=== PATIENT | female | born 1980 | race Caucasian/White ===

== ENCOUNTER 2018-02-06 06:00 | Inpatient (IN) | payer BC ==
[2018-02-05 16:40] LABS: ABS Basophils 0 10^3/ul (0-0.2); ABS Eosinophils 0.1 10^3/ul (0-0.6); ABS Lymphocytes 1.7 10^3/ul (1.0-4.8); ABS Monocytes 0.5 10^3/ul (0-0.8); ABS Neutrophils 6.6 10^3/ul (1.5-7.7); ABS Nucleated RBC 0 10^3/ul; Eosinophil % 1.2 % (0-6); Hematocrit 38 % (35-47); Hemoglobin 13.1 g/dl (12.0-16.0); Lymphocyte % 19.4 % (25-47); Mean Corpuscular HGB Conc 35 g/dl (31-36); Mean Corpuscular Hemoglobin 32 pg (27-31); Mean Corpuscular Volume 91 fL (80-97); Mean Platelet Volume 7.7 um3 (7.4-10.4); Nucleated Red Blood Cells % 0; Platelet Count 206 10^3/ul (150-450); Red Blood Count 4.15 10^6/ul (4.00-5.40); Red Cell Distribution Width 14 % (10.5-15)
[~2018-02-06 06:00] MED LIST: Buffered Lidocaine 0.9% SYRIN* 5 ML/SYR SYRINGE INTRADERM ONE; Metoclopramide IV* 5 MG/ML 2 ML VIAL IV SLOW PU ONE; Ondansetron SYRINGE* 4 MG/2 ML SYRINGE (from 40mg/20ml vial) IV ONE; Sodium Citrate/Citric Acid* 15 ML UDC PO ONE
--- OUTSIDE RECORDS SUMMARY | 2018-02-06 06:05 | XMS REPORT ---
:1980 External Reference #:[id number] Author Organization [facility] Address [address] [place] [id number] Phone [phone] Care Team Providers Name Role Phone Meron Olivo MD Primary Care Physician Unavailable Payers Type Date Identification Numbers Payment Provider Subscriber Commercial Policy Number: [id number] [facility] Nancie Hou PayID: [id number] [address] [address] [place] [address] Problems Date Description Provider Status Onset: 08/28/2017 Elderly primigravida Neda Bajwa CNM Active Family History Date Family Member(s) Problem(s) Comments Father Hypercholesterolemia Mother Hypercholesterolemia First Brother Anxiety Second Brother A&W Third Brother A&W Paternal Grandfather due to Alzheimer's Disease () Paternal Grandmother due to Old Age () Maternal Grandfather due to [place] () Maternal Grandfather due to Aneurysm () Maternal Grandmother A&W Social History Type Date Description Comments Education Highest Level Completed, Master's Degree Marital Status Lives With Pets None Occupation [place] [employer] Cigarette Use Former Cigarette Smoker Quit 2010 ETOH Use Alcohol Use Prior To 1-2 beers/week Recreational Drug Use Does Not Use Drugs Smoking Patient has never smoked Daily Caffeine Does not consume caffeine Seat Belt/Car Seat Always uses seat belt STD's No STD History Allergies, Adverse Reactions, Alerts Date Description Reaction Status Severity Comments 08/24/2017 NKDA active Medications Medication Date Status Form Strength Qnty SIG Indications Ordering Provider Vitamin Active Unknown Calcium 600 Active Unknown Iron Active Unknown Medications Administered in Office Medication Date Status Form Strength Qnty SIG Indications Ordering Provider PT SCRN Tbco Administered Injection Kimberlyn Id as Non User 018 MD Srinivas Immunizations CPT Code Status Date Vaccine Lot # [id number] Given 11/17/2017 Tetnus, Diptheria Toxoids And Acellular Pertussis, 9PD92 PT > 7Yrs Old Vital Signs Date Vital Result Comment 01/27/2018 BP Systolic 122 mmHg BP Diastolic 80 mmHg Body Temperature 97.8 F Heart Rate 80 /min Respiratory Rate 12 /min Height 67.5 inches 5'7.50" Weight 196.00 lb BMI (Body Mass Index) 30.2 kg/m2 Last Menstrual Period [id number] 1 Parity 0 08/24/2017 BP Systolic 116 mmHg BP Diastolic 78 mmHg Height 67.5 inches 5'7.50" Weight 176.00 lb BMI (Body Mass Index) 27.2 kg/m2 Last Menstrual Period 0349000 1 Parity 0 Results Test Date Test Result H/L Range Note Laboratory test 01/11/2018 Group B Strep SEE RESULT BELOW 1, 2 finding Culture Screen Laboratory test 11/17/2017 Glucose 1 HR Post 61 mg/dL Low 70-160 3 finding Prandial CBC With No Diff 11/17/2017 White Blood Count 10.7 10^3/uL 3.5-10.8 Red Blood Count 3.70 10^6/uL Low 4.0-5.4 Hemoglobin 11.5 g/dL Low 12.0-16.0 Hematocrit 34 % Low 35-47 Mean Corpuscular Volume 92 fL 80-97 Mean Corpuscular Hemoglobin 31 pg 27-31 Mean Corpuscular HGB Conc 34 g/dL 31-36 Red Cell Distribution Width 15 % 10.5-15 Platelet Count 259 10^3/uL 150-450 Mean Platelet Volume 6.8 um3 Low 7.4-10.4 Lead 09/23/2017 Lead 1.9 g/dL 0.0-4.9 4 Submitting Laboratory Phone [phone] Laboratory test finding 09/23/2017 Hemoglobin A1c 4.9 % 4.0-5.6 6 Rubella Screen Equivocal IU/mL Immune 7 Maternal Serum Afp 09/23/2017 ELPIDIO Interpretation SEE NOTE 8 Risk For NTD (Osb) 1:4100 Afp,Serum 48.7 NG/ML Adjusted Mom 0.91 9 Comment SEE NOTE 10 Date Of 1980 CLIVE 02/07/2018 CLIVE Determined By ULTRASOUND Gestational Age 20.4 WEEKS Weight 176 LBS Race =W Insulin Dependent Diabetic NO Cigarette Smoker NO Repeat Sample NO Number Of Fetuses 1 History Of NTD NO Date Of Draw 09/23/2017 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 N Is patient penicillin allergic and/or sensitivities needed? N Provider Requisition # C77#[id number]_ Procedure Result Reported Site Group B Strep Culture Screen Final 01/13/18- 1031 ML Group B Strep Screen Negative * ML - Main Lab . END OF REPORT DEPARTMENT OF PATHOLOGY, [address] [place] [address] Santhosh Michelle M.D. Director [facility] # [id number] 3 [id number] ADDITIONAL INFORMATION Testing performed by Inductively Coupled Plasma-Mass Spectrometry (ICP-MS). This test was developed and its performance characteristics determined by [facility] in a manner consistent with CLIA requirements. This test has not been cleared or approved by the U.S. Food and Drug Administration. 5 Test Performed by: [facility] [address] [place] [id number] 6 Therapeutic target for the treatment of diabetes mellitus patients is <7% HBA1C, and in selective patients <6.0%. Please refer to [place] [employer] diabetic care guidelines for further information. 7 [id number] 8 SCREEN NEGATIVE FOR OPEN NTD. 9 ADJUSTED AFP MOM INTERPRETIVE CUTOFFS: <2.50 ADJUSTED MOM <1.90 ADJUSTED MOM FOR INSULIN-DEPENDENT DIABETES <4.00 ADJUSTED MOM FOR TWINS <3.50 ADJUSTED MOM FOR TWINS INSULIN-DEPENDENT DIABETES <4.50 ADJUSTED MOM FOR TRIPLETS <4.00 ADJUSTED MOM FOR TRIPLETS INSULIN-DEPENDENT DIABETES 10 THE AFP TEST RESULT INDICATES THAT THIS PATIENT IS SCREEN NEGATIVE FOR OPEN NTD. IT SHOULD BE NOTED THAT NORMAL TEST RESULTS CAN NEVER GUARANTEE THE OF A NORMAL BABY AND THAT 2-3% OF [place] HAVE SOME TYPE OF PHYSICAL OR MENTAL DEFECT, MANY OF WHICH ARE UNDETECTABLE THROUGH ANY KNOWN DIAGNOSTIC TECHNIQUE. THE SINGLE AFP MARKER IS NOT RECOMMENDED FOR DOWN SYNDROME AND OTHER CHROMOSOMAL ABNORMALITIES SCREENING. MUCH GREATER SENSITIVITY IS ACHIEVED WITH MULTIPLE MARKERS, SUCH AFP, HCG, UNCONJUGATED ESTRIOL, AND/OR DIMERIC INHIBIN A. 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 THIS IS A SCREENING TEST, NOT A DIAGNOSTIC TEST. THIS RISK ASSESSMENT REPORT IS BASED IN PART ON DEMOGRAPHIC DATA PROVIDED BY THE ORDERING PHYSICIAN. PLEASE NOTIFY THE LAB PROMPTLY IF ANY DATA IS INCORRECT. FOR ASSISTANCE WITH RECALCULATIONS, PLEASE CALL YOUR LOCAL [facility] AT . FOR ASSISTANCE WITH INTERPRETATION OF THESE RESULTS, PLEASE CALL [phone]. 11 --- Reviewed by: Gera Campbell MD 12 SEE RESULT BELOW Name: NANCIE HOU : [address]: Neda Bajwa CNM Acct: [id number] Unit: [id number] AGE: 37 Location: [facility] Re08/24/17 SEX: F Status: REG REF SPEC: [id number] TAYLOR: 08/24/[address] [facility] [address]: Neda Bajwa [facility] REQ: [id number] RECD: 08/24/17 STATUS: COMP _ SOURCE: URINE SPDESC: ORDERED: Urine Culture COMMENTS: [id number] Urine Source: Random Procedure Result Reported Site Urine Culture Final 08/25/17- 1249 ML No Growth (<1,000 CFU/mL) * ML - MAIN LAB ([facility]) . END OF REPORT * ML=Testing performed at Main Lab DEPARTMENT OF PATHOLOGY, [address] [place] [id number] Santhosh Michelle M.D. Director [facility] # [id number] Procedures Date CPT Code Description Status 01/23/2018 60930 External Cephalic Version Completed 01/16/2018 68039 Echography Uterus Limited Completed 01/11/2018 69015 Echography Uterus Limited Completed 09/23/2017 00853 Echography Uterus Complete Completed Encounters Type Date Location Provider CPT E/M Dx Office Visit 01/27/2018 8:00a [facility] [place] [address] O32.1xx1 Z01.818 Plan of Care Future Appointment(s):03/21/2018 2:30 pm - Kimberlyn Espino MD at [facility]02/13/2018 10:00 am - Nancy Chaudhari CNM at [facility]02/06/2018 9:30 am - Gayathri Dalton CNM at [place] 6208302/06/2018 9:30 am - Breezy Nash M.D. at [place] 6208302/06/2018 9:30 am - Kimberlyn Espino MD at [place] 6208302/01/2018 10:40 am - Gayathri Dalton CNM at [facility]01/27/2018 - Kimberlyn Espino MDO32.1xx1 Maternal care for breech presentation, fetus 1Comments:Routine care delivered. LEngthy discussion of breech and complications assoicated with vaginal breech along with breech deliveries in general. Pt and huband both presetns for discussion.Z01.818 Encounter for other preprocedural examinationComments:Lengthy discussion lasting an hour regarding breech management and primary section. Pt accepts risk to include but not limited to infection, bleeding ,damage to internal organs, slaughter ,scarring,need for blood transfusion, risk of extension of uterine scar and recommendations for no if this occurs. Pt desires another attempt at ECV and pt is bravo success decreases with second attempt and that risk of emergent delivery is a real possibility. Reviewed consent for primary sectionand pt accepts above risks and consent for was personally signed with pt and in room after lengthy counseling.
[2018-02-06] MEDS ORDERED: ceFOXitin 2 GM IVPREMIX* 2 GM/50 ML BAG ONE (06:39)
[2018-02-06] MEDS ORDERED: EPHEDrine (Pressors)* 50 MG/ML VIAL ONE (07:18)
[2018-02-06] MEDS ORDERED: Sterile Water for Inj* 10 ML ONE (07:18)
[2018-02-06] MEDS ORDERED: OXYTOCIN* 10 UNITS/ML 1 ML VIAL ONE (07:19)
[2018-02-06] MEDS ORDERED: Ketorolac INJ* 30 MG/ML 1 ML VIAL ONE (07:19)
[2018-02-06] MEDS ORDERED: fentaNYL* 50 MCG/ML 2 ML VIAL (100 MCG VIAL) ONE (07:24)
[2018-02-06] MEDS ORDERED: Morphine PF AMP (0.5MG/ML)* 5 MG/10 ML AMP ONE (07:24)
[2018-02-06] MEDS ORDERED: Bupivacaine-MPF SPINAL* 7.5 MG/ML - 2ML AMP ONE (07:28)
[2018-02-06] MEDS ORDERED: Lidocaine 2% PF* 10 ML AMP ONE (07:28)
[2018-02-06] MEDS ORDERED: oxyCODONE/Acetamin 5/325 MG* TAB PO PRN ×2 (07:58→08:00)
[2018-02-06] MEDS ORDERED: diPHENhydraMINE IV* 50 MG/ML 1 ml VIAL (BENADRYL) IV PRN ×2 (07:58→08:00)
[2018-02-06] MEDS ORDERED: Naloxone* 0.4 MG/ML 1 ML VIAL IV PRN ×2 (07:58→08:00)
[2018-02-06] MEDS ORDERED: Ondansetron 40 MG VIAL* 2 MG/ML 20 ML VIAL IV PRN ×2 (07:58→08:00)
[2018-02-06] MEDS ORDERED: Scopolamine 1.5 mg* PATCH TRANSDERM PRN (07:58)
[2018-02-06] MEDS ORDERED: Nalbuphine* 10 MG/ML 1 ML VIAL IV PRN (07:58)
[2018-02-06] MEDS ORDERED: PROCHLORPERAZINE INJ 5 MG/ML 2 ML VIAL IV PRN (08:00)
[2018-02-06] MEDS ORDERED: Acetaminophen IV 1GM/100ML * 1,000 MG/100 ML VIAL IVPB ONE (08:00)
[2018-02-06] MEDS ORDERED: fentaNYL* 50 MCG/ML 2 ML VIAL (100 MCG VIAL) IV PRN (08:00)
[2018-02-06] MEDS ORDERED: Acetaminophen TAB* 325 MG PO PRN ×2 (08:00→13:00)
[2018-02-06] MEDS ORDERED: HYDROmorphone INJ* 1 MG/ML CARPUJECT SYRINGE IV PRN (08:00)
[2018-02-06] MEDS ORDERED: Glycerin ADULT SUPP PR PRN (09:35)
[2018-02-06] MEDS ORDERED: Dibucaine 1% 28.35 GM TUBE PR PRN (09:35)
[2018-02-06] MEDS ORDERED: Witch Hazel PAD* JAR TOPICAL PRN (09:35)
[2018-02-06] MEDS ORDERED: Oxytocin in LR* 20 UNITS/1,000 ML BAG IVPB SCH (10:00)
[2018-02-06] MEDS: Docusate CAP* 100 MG PO SCH ×2 (14:52→21:21)
[2018-02-06] MEDS: Simethicone TAB* 80 MG TAB.CHEW PO SCH ×3 (14:53→21:21)
[2018-02-06] MEDS: Ketorolac INJ* 30 MG/ML 1 ML VIAL IV PRN ×2 (14:53→21:21)
[2018-02-06] MEDS ORDERED: Ibuprofen TAB* 600 MG ONE (21:38)
[2018-02-06] MEDS: Ibuprofen TAB* 600 MG PO PRN (21:43)
--- NOTE | 2018-02-06 22:27 | PTEDU ---
Patient Name: JOSE HOU JOSE HOU selected video: Never Ever Shake a Baby to view on 02/06/2018 at 10:26:37 PM from [email or web address] 16_01
[2018-02-07] MEDS ORDERED: Acetaminophen TAB* 325 MG PO PRN
[2018-02-07 07:00] LABS: ABS Basophils 0 10^3/ul (0-0.2); ABS Eosinophils 0.2 10^3/ul (0-0.6); ABS Lymphocytes 1.9 10^3/ul (1.0-4.8); ABS Monocytes 0.5 10^3/ul (0-0.8); ABS Neutrophils 9.1 10^3/ul (1.5-7.7); ABS Nucleated RBC 0 10^3/ul; Eosinophil % 1.3 % (0-6); Hematocrit 33 % (35-47); Hemoglobin 11.4 g/dl (12.0-16.0); Lymphocyte % 16.2 % (25-47); Mean Corpuscular HGB Conc 34 g/dl (31-36); Mean Corpuscular Hemoglobin 31 pg (27-31); Mean Corpuscular Volume 92 fL (80-97); Mean Platelet Volume 7.5 um3 (7.4-10.4); Nucleated Red Blood Cells % 0; Platelet Count 178 10^3/ul (150-450); Red Blood Count 3.64 10^6/ul (4.00-5.40); Red Cell Distribution Width 14 % (10.5-15); White Blood Count 11.7 10^3/ul (3.5-10.8)
[2018-02-07] MEDS: Ibuprofen TAB* 600 MG PO PRN ×3 (07:28→20:45)
[2018-02-07] MEDS: oxyCODONE/Acetamin 5/325 MG* TAB PO PRN ×4 (07:28→22:27)
[2018-02-07] MEDS ORDERED: Measles, Mumps,Rubella VACC* 0.5 ML/VIAL SUBCUT ONE (09:00)
[2018-02-07] MEDS ORDERED: Ferrous Gluconate TAB* 324 MG TAB PO SCH (09:00)
[2018-02-07] MEDS: Simethicone TAB* 80 MG TAB.CHEW PO SCH ×4 (10:09→20:45)
[2018-02-07] MEDS: Docusate CAP* 100 MG PO SCH ×3 (10:09→20:45)
--- NOTE | 2018-02-07 11:14 | OP ---
DATE OF OPERATION: 02/06/18 - ROOM #116 DATE OF : [birth year] SURGEON: Kimberlyn Espino MD BAT LATHE OPERATOR: Dr. Breezy Nash. ANESTHESIOLOGIST: Dr. Lerma. ANESTHESIA: Spinal. PRE-OP DIAGNOSIS: Intrauterine , 39 weeks, carl breech, left sacrum anterior. POST-OP DIAGNOSIS: Intrauterine , 39 weeks, carl breech, left sacrum anterior, delivered. OPERATIVE PROCEDURE: Primary low-transverse section. ESTIMATED BLOOD LOSS: 600 cc. FLUIDS: 1700 cc of crystalloid. URINE OUTPUT: 100 cc of clear yellow urine. FINDINGS: Revealed female , carl breech, left sacrum anterior, 8 pounds 4 ounces, Apgars 9 at 1 minute and 9 at 5 minutes. Normal tubes and ovaries bilaterally. Normally palpated uterine cavity. No masses. No excrescences. Nuchal cord x1. Light meconium. Placenta was manually extracted. Three-vessel cord intact. COMPLICATIONS: None apparent. DISPOSITION: Stable to recovery room. DESCRIPTION OF PROCEDURE: The patient was placed in dorsal lithotomy position. Abdomen was prepped and draped in a sterile standard fashion. Anesthesia was tested to appropriate level. An incision was made after identifying the patient with universal protocol for correct procedure, position, and patient. Incision was carried down through the fascia. Fascia was scored in the midline and extended laterally and superiorly using Dorman scissors. Fascia was superiorly and inferiorly from the rectus muscle with blunt and sharp dissection. The peritoneum was entered bluntly. The peritoneal incision was extended inferiorly and superiorly using Metzenbaums under direct visualization. The bladder blade was then inserted. Lower uterine segment was identified and tented up with an Allis. An incision was made with scalpel in the lower uterine segment. This was carried down through to membranes. The incision was extended laterally and superiorly using bandage scissors. Amniotomy was then created for light meconium. The infant was delivered carl breech, anterior-posterior shoulder delivered, first shoulder delivered was the right, second was the left. Head delivered spontaneously. Nuchal cord was reduced. Appropriate time was allotted 60 seconds before clamping of cord. Baby was vigorous and crying with delivery of head. Cord was clamped, cut, and the infant was handed off to awaiting paint spray inspector. Appropriate cord blood was obtained. Placenta was then manually extracted. Uterus was exteriorized. Cavity was explored, noted to be free of any membranes or placental tissue. No cavity abnormalities were appreciated. Normal tubes and ovaries were visualized. The uterine incision itself was reapproximated in 2 layers, first layer running locked 0 Vicryl, second layer 0 Vicryl imbricated. The uterus was returned intraabdominally. Colic gutters were lavaged. Hemostasis was assured of the hysterotomy site. The peritoneum was then clamped and reapproximated using 3-0 Vicryl in a running fashion. Subfascial area was visualized and noted to be hemostatic. The fascia itself was reapproximated using 0 Vicryl x2 in a running fashion. A Camper's fascia stitch was placed after confirming hemostasis of the subcutaneous tissue. This was used 3-0 Vicryl in an interrupted fashion. The skin was then reapproximated using 4-0 Monocryl in a subcuticular fashion. Mastisol and Steris were applied. All sponge, needles, and blade counts were correct throughout the case. The patient tolerated the procedure well and went to recovery room in stable condition. [id number]/[facility] #: [id number] [place]
[2018-02-08] MEDS: Ibuprofen TAB* 600 MG PO PRN ×4 (02:28→20:51)
[2018-02-08] MEDS: oxyCODONE/Acetamin 5/325 MG* TAB PO PRN ×6 (02:29→23:58)
[2018-02-08] MEDS: Docusate CAP* 100 MG PO SCH ×3 (08:34→20:51)
[2018-02-08] MEDS: Simethicone TAB* 80 MG TAB.CHEW PO SCH ×4 (09:14→20:50)
[2018-02-09] MEDS: Ibuprofen TAB* 600 MG PO PRN ×2 (02:52→08:55)
[2018-02-09] MEDS: oxyCODONE/Acetamin 5/325 MG* TAB PO PRN ×3 (04:00→12:19)
[2018-02-09] MEDS ORDERED: Scopolamine PATCH Remove* 1 NOTE MISC PATCH OFF PRN (07:59)
[2018-02-09] MEDS: Docusate CAP* 100 MG PO SCH ×2 (08:47→14:12)
[2018-02-09] MEDS: Simethicone TAB* 80 MG TAB.CHEW PO SCH ×2 (08:47→12:20)
[2018-02-09 09:03] VITALS: BP 112/71
--- NOTE | 2018-02-09 11:36 | PTEDU ---
Patient Name: JOSE HOU JOSE HOU selected video: Never Ever Shake a Baby to view on 02/09/2018 at 11:36:05 AM from [email or web address] 16_01
== END 2018-02-09 14:20 | disposition home or self-care (01) | DRG 540 ==
LOC: MCHOB 06:00
PROVIDERS: ADMIT Obstetrics & Gynecology; ATTEND Obstetrics & Gynecology
PROC: 10D00Z1 Extraction of Products of Conception, Low, Open Approach (ICD-10-PCS; 2018-02-06)
PROC: 4A1HX4Z Monitoring of Products of Conception, Cardiac Electrical Activity, External Approach (ICD-10-PCS; principal; 2018-02-06 07:45)
DX: O32.1XX0 Maternal care for breech presentation, not applicable or unspecified (principal); O69.81X0 Labor and delivery complicated by cord around neck, without compression, not applicable or unspecified; Z3A.39 39 weeks gestation of pregnancy; Z37.0 Single live birth; Z87.891 Personal history of nicotine dependence; O77.0 Labor and delivery complicated by meconium in amniotic fluid
CPT/HCPCS: 36415; 85025; 86850; 86900; 86901; A9270-GY; J0694; J1885; J2001; J2405; J2590; J2765; J3010